=== PATIENT | female | born 1975 | race Caucasian/White ===

== ENCOUNTER 2016-11-24 22:12 | Emergency (ER) | payer OTHER ==
--- NOTE | 2016-11-24 23:17 | PD ---
HPI Chief Complaint Contractions Date Seen: Nov 24, 2016 Travel History International Travel<30 Days: No Contact w/Intl Traveler<30Days: No History of Present Illness HPI This patient is a 41-year-old white female [address] Pineda for care who complains of contractions over the last several hours. Denies bleeding or rupture the membranes baby is active heart rate tracing is reactive and she is having of an occasional contraction Para: 2 : 4 Miscarriage: 1 History Obstetric History Obstetric History 2 vaginal deliveries and the loss early Family History Family History: Negative Social History Alcohol Use: No Tobacco Use: No Substance Abuse: No Review of Systems General / Constitutional: No: Fever, Weight Gain, Chills, Other Eyes: No: Diploplia, Blurred Vision, Visual changes, Pain, Photophobia HENT: No: Headaches, Vertigo, Lightheadedness Cardiovascular: No: Irregular Rhythm, Chest Pain or Discomfort, Palpitations, Tachycardia, Syncope, Varicosities, Edema, Cyanosis Respiratory: No: Cough, Short of Breath, Other Gastrointestinal: Abdominal Pain, No: Nausea, Vomiting, Diarrhea Genitourinary: No: Decreased Urinary Output, Oliguria Musculoskeletal: No: Limited ROM, Weakness, Cramping, Edema, Pain Skin: No Rash, No Itching, No Dryness, No Lumps, No Change in Pigmentation, No Change in Nails, No Alopecia, No Lesions Neurologic: No: Weakness, Dizziness, Syncope, Focal Abnormalities, Coordination Problem, Headache, Slurred Speech, Seizures Psychiatric: No: Depression, Suicidal Ideations, Homicidal Ideation Endocrine: No: Heat Intolerance, Cold Intolerance, Polydipsia, Polyuria, Other Physical Exam Narrative GENERAL: Well-nourished, well-developed patient. SKIN: Warm and dry. HEAD: Normocephalic and atraumatic. EYES: No scleral icterus. No injection or drainage. ENT: No nasal drainage noted. Mucous membranes pink. Airway patent. NECK: Supple, trachea midline. No JVD. CARDIOVASCULAR: Regular rate and rhythm without murmurs, gallops, or rubs. RESPIRATORY: Breath sounds equal bilaterally. No accessory muscle use. BREASTS: Bilateral exam showed no masses , no retractions, no nipple discharge. ABDOMEN/GI: Abdomen soft, non-tender, bowel sounds present, no rebound, no guarding Gravid to [-39] weeks size Fundal Height: [-39] GENITOURINARY: External Genitalia: intact and normal in appearance BUS glands: [-] Cervix: [-] Dilatation: [2-] Effacement: [60-] Station: [-3] Presentation: [-vtx] Membranes: [intact ] Uterine Contractions: [-] Irregular FHT's: Category: [1-] Baseline: [144-] Reactive: [yes-] Variability: [mod-] Decels: [none-] EXTREMITIES: No cyanosis or edema. BACK: Nontender without obvious deformity. No CVA tenderness. NEUROLOGICAL: Awake and alert. Motor and sensory grossly within normal limits. Five out of 5 muscle strength in all muscle groups. Normal speech. MDM Interpretation(s) This patient is a 41-year-old white female 39 weeks presents to rule out labor. She is trino irregularly no bleeding or leakage of fluid. Cervix is same as was the office 2/160/-3 vertex. heart rate tracing is reactive Plan The patient be discharged home to return for increasing labor pains or bleeding or leakage of fluid otherwise follow-up with her OB provider Diagnosis Diagnosis: Primary Impression: False labor after 37 completed weeks of gestation Disposition: DISCHARGE HOME Condition: Stable Hieu Nixon II, MD Nov 24, 2016 23:17
== END 2016-11-25 00:22 | disposition home or self-care (01) ==
LOC: HOBED 22:12
DX: O47.1 False labor at or after 37 completed weeks of gestation (principal); Z3A.37 37 weeks gestation of pregnancy
CPT/HCPCS: 99284

== ENCOUNTER 2016-11-29 08:27 | Inpatient (IN) | payer OTHER ==
[~2016-11-29] VITALS: Ht 172.7 cm; Wt 88.5 kg
[2016-11-29] VITALS (19 sets, daily range): BP systolic 109–142; BP diastolic 54–110; PULSE 65–183; RESP 16–18; TEMP 97.7–98.6
[2016-11-29 09:32] LABS: AUTOMATED NEUTROPHIL # 5.9 TH/MM3 (1.8-7.7); BASOPHIL % 0.3 % (0.0-2.0); EOSINOPHIL % 0.6 % (0.0-4.0); HEMATOCRIT 33.9 % (35.0-46.0); HEMO FLAGS DIFF FINAL; LYMPH % 20.5 % (9.0-44.0); LYMPHOCYTE # 1.8 TH/MM3 (1.0-4.8); MEAN CELL VOLUME 90.9 FL (80.0-100.0); MEAN CORPUSCULAR HEMOGLOBIN 30.5 PG (27.0-34.0); MEAN CORPUSCULAR HGB CONC 33.6 % (32.0-36.0); MONO % 9.7 % (0.0-8.0); NEUT % 68.9 % (16.0-70.0); PLATELET COUNT 187 TH/MM3 (150-450); RED BLOOD COUNT 3.73 MIL/MM3 (4.00-5.30); RED CELL DISTRIBUTION WIDTH 13.1 % (11.6-17.2); WHITE BLOOD COUNT 8.6 TH/MM3 (4.0-11.0)
[2016-11-29 09:57] LABS: BACTERIA, URINE OCC /hpf; BLOOD, URINE NEG (NEG); GLUCOSE,URINE NEG (NEG); KETONE, URINE NEG (NEG); NITRITE,URINE NEG (NEG); SQUAMOUS EPITHELIAL CELL URINE <1 /hpf (0-5); URINE COLOR LIGHT-YELLOW (YELLW/STRAW)
[2016-11-29 09:59] LABS: COMMENT (UR) CULT NOT INDICATED; CULTURE IF INDICATED CULT NOT INDICATED
[2016-11-29] MEDS ORDERED: LIDOCAINE HCL 1% 50 ML VIAL I-DERMAL PRN ×2 (10:00→10:15)
[2016-11-29] MEDS ORDERED: LACTATED RINGER'S 1000 ML IV SCH ×2 (10:00→10:15)
[2016-11-29] MEDS ORDERED: LIDOCAINE HCL 1% 50 ML VIAL SQ PRN (10:00)
[2016-11-29] MEDS ORDERED: NS 1000 ML OTHER PRN (10:00)
[2016-11-29] MEDS ORDERED: MINERAL OIL 10 ML VIAL TOP PRN ×2 (10:00→10:15)
[2016-11-29] MEDS ORDERED: LACTATED RINGER'S 1000 ML BOLUS IV PRN ×2 (10:00→10:15)
[2016-11-29] MEDS ORDERED: ONDANSETRON HCL 4 MG/2 ML VIAL IV PRN ×2 (10:00→10:15)
[2016-11-29] MEDS ORDERED: NS 500 ML BOLUS OTHER PRN (10:00)
[2016-11-29] MEDS ORDERED: CITRIC ACID-SODIUM CITRATE LIQ 30 ML UDC PO SCH ×2 (10:00→10:15)
[2016-11-29] MEDS ORDERED: OXYTOCIN 30 UNITS 500ML PREMIX IV ONE ×2 (10:00→10:15)
[2016-11-29] MEDS ORDERED: NS 500 ML BOLUS IV PRN (10:15)
[2016-11-29] MEDS ORDERED: OXYTOCIN 30 UNITS/NS 500ML PREMIX IV SCH (10:15)
[2016-11-29] MEDS ORDERED: LIDOCAINE HCL 1% 50 ML VIAL INFIL PRN (10:15)
[2016-11-29] MEDS ORDERED: NS 1000 ML IV PRN (10:15)
[2016-11-29] MEDS ORDERED: PENICILLIN G POT 5,000,000 UNITS/NS 100 ML (Mini-Bag Plus) IV ONE ×2 (11:00)
[2016-11-29] MEDS ORDERED: PENICILLIN G POT 2,500,000 UNITS/NS 100 ML IV SCH ×2 (15:00)
[2016-11-29] MEDS ORDERED: ONDANSETRON ODT 4 MG TAB PO PRN (15:45)
[2016-11-29] MEDS ORDERED: BENZOCAINE 20% TOPICAL SPRAY 60 ML CAN TOPICAL PRN (15:45)
[2016-11-29] MEDS ORDERED: ZOLPIDEM TARTRATE 5 MG TAB PO PRN (15:45)
[2016-11-29] MEDS ORDERED: SODIUM CHLORIDE 0.9% FLUSH 5 ML FLUSH IV PRN (15:45)
[2016-11-29] MEDS ORDERED: OXYTOCIN 30 UNITS-500ML PREMIX 500 ML IV ONE (15:45)
[2016-11-29] MEDS ORDERED: DOCUSATE SODIUM 50 MG/SENNA 8.6 MG TAB PO PRN (15:45)
[2016-11-29] MEDS ORDERED: WITCH HAZEL 50%/GLYCERIN 12.5% 40 PAD JAR TOPICAL PRN (15:45)
[2016-11-29] MEDS ORDERED: IBUPROFEN 600 MG TAB PO PRN (15:45)
[2016-11-29] MEDS ORDERED: ACETAMINOPHEN 325 MG TAB PO PRN (15:45)
[2016-11-29] MEDS ORDERED: ALUMINUM/MAGNESIUM/SIMETH 30 ML CUP PO PRN (15:45)
[2016-11-29] MEDS ORDERED: oxyCODONE/ACETAMINOPHEN 5 MG/325 MG TAB PO PRN ×2 (15:45)
--- NOTE | 2016-11-29 15:53 | PD.OB.DELI ---
Delivery Date: Nov 29, 2016 Anesthesia: None Episiotomy: None Vaginal Delivery: Normal Presentation: Occiput anterior Nuchal Cord: x2 Delayed cord clamping (45 sec): Yes : Male One Minute : 8, 9 Five Minute : 9 Weight: 7/3 Infant Care: Suctioned, Spontaneous crying, Responded to stimulation Placenta: Spontaneous delivery, Intact, 3 vessel cord Laceration: Perineal laceration, 1 deg Repair: Vicryl running Additional Information Nice dellivery in bed. She felt like pushing and the head was delivering. Double nucal cord Small bilateral urethral tears repaired with 5-0 vicryl. Emmanuelle Carl MD Nov 29, 2016 15:53
[2016-11-29] MEDS ORDERED: MEASLES, MUMPS, RUBELLA VACCINE 0.5 ML VIAL SQ ONE (16:00)
[2016-11-29] MEDS ORDERED: DIPHTH/TETANUS/ACEL PERTUSSIS (BOOSTER) 0.5 ML VIAL/PFS IM ONE (16:00)
[2016-11-29] MEDS ORDERED: SODIUM CHLORIDE 0.9% FLUSH 5 ML FLUSH IV SCH (21:00)
[2016-11-30 08:40] VITALS: BP 107/67; PULSE 68; RESP 18; TEMP 98
--- NOTE | 2016-11-30 11:53 | HHI.OB ---
Subjective Post Day: 1 Objective Vitals/I&O Vital Signs Date Time Temp Pulse Resp B/P Pulse Ox O2 Delivery O2 Flow Rate FiO2 11/30/16 08:40 98.0 68 18 107/67 11/29/16 19:45 98.4 11/29/16 19:45 84 18 134/68 11/29/16 18:02 80 16 109/66 11/29/16 18:02 98.6 11/29/16 17:01 69 129/79 11/29/16 16:45 67 132/87 11/29/16 16:31 68 133/77 11/29/16 16:15 183 142/110 11/29/16 16:00 77 139/84 11/29/16 15:50 82 137/84 11/29/16 15:45 97.7 17 11/29/16 15:30 85 117/65 11/29/16 13:30 84 122/65 11/29/16 13:05 71 124/64 11/29/16 13:00 97.8 11/29/16 12:30 69 113/80 11/29/16 12:00 65 117/54 Objective Remarks GENERAL: Well-nourished, well-developed patient. CARDIOVASCULAR: Regular rate and rhythm without murmurs, gallops, or rubs. RESPIRATORY: Breath sounds equal bilaterally. No accessory muscle use. ABDOMEN/GI: Abdomen soft, non-tender. Fundus: Firm, non-tender at umbilicus. GENITOURINARY: Light to moderate bleeding. EXTREMITIES: No cyanosis or edema, non-tender, without signs of DVT. Medications and IVs Current Medications Medications (Trade) Dose Ordered Sig/Bret Route Start Time Stop Time Status Last Admin (NS Flush) 2 ml BID IV 11/29/16 21:00 (NS Flush) 2 ml UNSCH PRN IV 11/29/16 15:45 (Tylenol) 650 mg Q4H PRN PO 11/29/16 15:45 (Motrin) 600 mg Q6H PRN PO 11/29/16 15:45 (Percocet 5-325 Mg) 1 tab Q4H PRN PO 11/29/16 15:45 (Percocet 5-325 Mg) 2 tab Q4H PRN PO 11/29/16 15:45 (Americaine 20% Top Spr) 1 spray Q4H PRN TOPICAL 11/29/16 15:45 (Tucks Pads) 1 applic QID PRN TOPICAL 11/29/16 15:45 (Onelia-Colace) 2 tab Q12H PRN PO 11/29/16 15:45 (Ambien) 5 mg HS PRN PO 11/29/16 15:45 (Mag-Al Plus Susp Liq) 15 ml Q8H PRN PO 11/29/16 15:45 (Zofran Odt) 4 mg Q6H PRN PO 11/29/16 15:45 Assessment/Plan Assessment and Plan PT DOING WELL BONDING WITH INFANT NOT NEEDING ANYTHING FOR PAIN, DISCUSSED MOTRIN AN OPTION ROUTINE Discharge Planning DC HOME TOMORROW Bonny Sebastian Nov 30, 2016 11:53
--- NOTE | 2016-11-30 11:54 | HHI.DCPOC ---
Discharge Care Plan Diagnosis: (1) Normal vaginal delivery Your Health Problems Are: Vaginal delivery Report Symptoms to Your Doctor -Temperate above 100.5 degrees -Redness, of incision or excessive or foul smelling drainage -Unusual pain or calf pain -Increased vaginal bleeding -Painful or difficulty urinating -Feelings of extreme sadness or anxiety after 2 weeks Goals to Promote Your Health * To prevent worsening of your condition and complications * To maintain your health at the optimal level Directions to Meet Your Goals Take your medications as prescribed Follow your dietary instruction Follow activity as directed Ensure plenty of rest for recovery Drink fluids for hydration Keep your appointments as scheduled Take your immunizations and boosters as scheduled If your symptoms worsen call your PCP, if no PCP go to Urgent Care Center or Emergency Room Smoking is Dangerous to Your Health. Avoid second hand smoke Call the 24-hour crisis hotline for domestic abuse at Bonny Sebastian Nov 30, 2016 11:54
[2016-11-30 21:10] VITALS: BP 100/54; PULSE 65; RESP 20; TEMP 98.6
[2016-12-01 07:37] VITALS: BP 104/67; PULSE 68; RESP 18; TEMP 98.7
[2016-12-01] MEDS ORDERED: medroxyPROGESTERone ACETATE SUSP 150 MG/ML SYRINGE IM ONE (08:15)
--- NOTE | 2016-12-01 09:01 | HHI.OB ---
Subjective Post Day: 2 Objective Vitals/I&O Vital Signs Date Time Temp Pulse Resp B/P Pulse Ox O2 Delivery O2 Flow Rate FiO2 12/01/16 07:37 68 18 104/67 12/01/16 07:37 98.7 11/30/16 21:10 98.6 65 20 100/54 Objective Remarks GENERAL: Well-nourished, well-developed patient. CARDIOVASCULAR: Regular rate and rhythm without murmurs, gallops, or rubs. RESPIRATORY: Breath sounds equal bilaterally. No accessory muscle use. ABDOMEN/GI: Abdomen soft, non-tender. Fundus: Firm, non-tender at umbilicus. GENITOURINARY: Light to moderate bleeding. EXTREMITIES: No cyanosis or edema, non-tender, without signs of DVT. Medications and IVs Current Medications Medications (Trade) Dose Ordered Sig/Bret Route Start Time Stop Time Status Last Admin (NS Flush) 2 ml BID IV 11/29/16 21:00 (NS Flush) 2 ml UNSCH PRN IV 11/29/16 15:45 (Tylenol) 650 mg Q4H PRN PO 11/29/16 15:45 (Motrin) 600 mg Q6H PRN PO 11/29/16 15:45 (Percocet 5-325 Mg) 1 tab Q4H PRN PO 11/29/16 15:45 (Percocet 5-325 Mg) 2 tab Q4H PRN PO 11/29/16 15:45 (Americaine 20% Top Spr) 1 spray Q4H PRN TOPICAL 11/29/16 15:45 (Tucks Pads) 1 applic QID PRN TOPICAL 11/29/16 15:45 (Onelia-Colace) 2 tab Q12H PRN PO 11/29/16 15:45 (Ambien) 5 mg HS PRN PO 11/29/16 15:45 (Mag-Al Plus Susp Liq) 15 ml Q8H PRN PO 11/29/16 15:45 (Zofran Odt) 4 mg Q6H PRN PO 11/29/16 15:45 Assessment/Plan Problem List: (1) Normal vaginal delivery Plan: ROUTINE Assessment and Plan PT DOING WELL BONDING WITH NOT NEEDING ANYTHING FOR PAIN, DISCUSSED MOTRIN AN OPTION ROUTINE Discharge Planning DC TODAY Bonny Sebastian Dec 01, 2016 09:01
--- NOTE | 2016-12-01 09:06 | HHI.DS ---
Admission Date Nov 29, 2016 at 08:27 Discharge Date: Dec 01, 2016 Admitting Diagnosis 39 WEEKS AROM INDUCTION Diagnosis: (1) Normal vaginal delivery Diagnosis: Principal Delivery Date: Nov 29, 2016 Vaginal Delivery: Normal : Male Brief History 39 WEEK AROM/PITOCIN INDUCTION Hospital Course ROUTINE Pt Condition on Discharge: Good Discharge Disposition: Discharge Home Discharge Instructions Diet Instructions: As Tolerated, No Restrictions Additional Diet Instructions: Drink at least 8 - 16 oz bottles of water a day Activities You Can Perform: Shower Only-No Bath, Sitz Bath Activities to Avoid: Lifting/Bending, Sexual Activity Additional Activity Instruc.: No driving until off pain medications Do not lift anything heavier than your baby in an carrier Follow up Referrals: LOSS PREVENTION LEAD - 2 Weeks @ [facility] [place] Bonny Sebastian Dec 01, 2016 09:06
== END 2016-12-01 14:16 | disposition home or self-care (01) | DRG 775 ==
LOC: H2EB 08:27 → H1EA 17:29
PROVIDERS: ADMIT Obstetrics & Gynecology; ATTEND Obstetrics & Gynecology
PROC: 10E0XZZ Delivery of Products of Conception, External Approach (ICD-10-PCS; principal; 2016-11-29)
PROC: 0HQ9XZZ Repair Perineum Skin, External Approach (ICD-10-PCS; 2016-11-29)
DX: O70.0 First degree perineal laceration during delivery (principal); O69.81X0 Labor and delivery complicated by cord around neck, without compression, not applicable or unspecified; Z3A.39 39 weeks gestation of pregnancy; Z37.0 Single live birth
CPT/HCPCS: 59025; 81001; 85025; 86900; 86901; 90715; J1050; J7120

== ENCOUNTER 2016-12-04 18:37 | Emergency (ER) | payer OTHER ==
[2016-12-04 18:39] VITALS: BP 145/78; PULSE 96; RESP 20; TEMP 99.2; O2SAT 95
--- NOTE | 2016-12-04 19:59 | MH ---
cc: JIM MAYORGA DATE OF ADMISSION 12/04/2016 HISTORY OF THE PRESENT ILLNESS Carey is a 41-year-old white female who called my service this afternoon complaining of a temperature of 102. With her other babies she has had mastitis. She just recently had her baby boy approximately a week ago. She states she is not having any other problems except her breasts are very tender and she is having fever and chills. She came to the ER to evaluate her for mastitis, endometritis or some other cause of the fever. PAST OB HISTORY She is para 3-0-1-3 recently had a normal vaginal delivery without any complications last week. 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 PAST MEDICAL HISTORY Her medical history is negative. FAMILY HISTORY Negative. SOCIAL HISTORY She does not drink, smoke or take drugs. ALLERGIES NO KNOWN DRUG ALLERGIES. PHYSICAL EXAMINATION GENERAL: Well-developed, well-nourished female in no acute distress. She is ambulating well. Does not look like she is in severe pain. VITAL SIGNS: Her blood pressure is 145/78. Her pulse is 96. Her temperature is 99.2. HEENT: Normocephalic, atraumatic. NECK: Supple. Trachea is midline. No thyromegaly or adenopathy. CHEST: Clear to auscultation and percussion. HEART: Regular rate and rhythm. BREASTS: The breasts are moderately tender bilaterally. On the left she has a red area under her left areola and it is +2 tender. Her breasts seem to be engorged. ABDOMEN: Abdomen is soft, nontender. The fundus is barely palpable and nontender. There is no suprapubic tenderness. EXTREMITIES: No clubbing, cyanosis or edema. No cords. ASSESSMENT AND PLAN Early mastitis. I will go ahead and give her dicloxacillin and tell her to keep her breasts drained and continue pumping to avoid engorgement. I do feel like she needs any labs or further treatment. She will call my office if this does not resolve. R. MD LORI Benson/MELBA /6:53 PM /7:39 PM
== END 2016-12-04 20:25 | disposition home or self-care (01) ==
LOC: NEPC 18:37
DX: O86.89 Other specified puerperal infections (principal); N61.0 Mastitis without abscess
CPT/HCPCS: 99281